=== PATIENT | female | born 2000 | race Two or more races ===

== ENCOUNTER 2024-03-24 15:34 | Observation (INO) | payer OTHER ==
[2024-03-24 17:08] LABS: Fern Testing Negative
== END 2024-03-24 17:49 | disposition home or self-care (01) ==
LOC: LDRP 15:34
PROVIDERS: ADMIT Obstetrics & Gynecology; ATTEND Obstetrics & Gynecology
DX: O42.913 Preterm premature rupture of membranes, unspecified as to length of time between rupture and onset of labor, third trimester (principal); Z3A.38 38 weeks gestation of pregnancy
CPT/HCPCS: 59025; 81002; 94760; G0378; Q0114